=== PATIENT | male | born 1990 | race Caucasian/White ===

== ENCOUNTER 2021-03-26 14:23 | Emergency (ER) | payer OTHER, SELFPAY ==
[2021-03-26 14:31] VITALS: BP 149/99; PULSE 79; RESP 14; TEMP 36; O2SAT 97; BMI 29.2
--- NOTE | 2021-03-26 14:37 | DI.RAD.S_ITS ---
PROCEDURE: XR ELBOW RT MIN 3V INDICATIONS: elbow injury TECHNIQUE: 3 views of the elbow were acquired. COMPARISON: None. FINDINGS: Bones: There is a posterior displaced olecranon fracture. Otherwise, there is no dislocation at the elbow joint. Soft tissues: Elbow joint effusion is present. No suspicious soft tissue calcifications. IMPRESSION: Elbow effusion with posterior displaced olecranon fracture. Dictated by: Melanie Osborne M.D. on 03/26/2021 at 15:13 Approved by: Melanie Osborne M.D. on 03/26/2021 at 15:14
--- NOTE | 2021-03-26 16:19 | ED_ITS ---
HPI - Extremity Injury (Upper) <DEANA Contreras - Last Filed: 03/26/21 18:20> General Chief Complaint: Extremity Injury, Upper Stated Complaint: possible broken elbow right Time Seen by Provider: 03/26/21 16:18 Source: patient Mode of arrival: Ambulatory History of Present Illness HPI narrative: 30-year-old male presents to the emergency department after he injured his right elbow while at work. He states he tripped on something and fell from standing directly onto his right elbow feeling immediate pain and swelling. Patient denies sensation changes distal to the injury, his right elbow is markedly s wollen, denies taking any medication before this. States this happened just prior to arrival. Patient states he has an allergy to oxycodone with a rash, he denies any other medical problems. There is no open wound, patient is right handed, he is able to move his arm and has full range of motion of his hand and fingers. Related Data Previous Rx's Medication Instructions Recorded hydrocodone 5 mg-acetaminophen 325 1 tab PO Q8H PRN #14 tab 03/26/21 mg tablet methocarbamol 500 mg tablet 500 mg PO TID #20 tab 03/26/21 Allergies Allergy/AdvReac Type Severity Reaction Status Date / Time acetaminophen [From Percocet] Allergy Verified 03/26/21 14:34 oxycodone [From Percocet] Allergy Verified 03/26/21 14:34 Review of Systems <DEANA Contreras - Last Filed: 03/26/21 18:20> Review of Systems Narrative: General: denies fever, chills, malaise, sweats, fatigue Head/Neck: denies headache, neck pain, dizziness Eyes: denies visual changes, eye pain Cardio: denies chest pain, palpitations, edema Respiratory: denies dyspnea, cough, orthopnea GI: denies abdominal pain, nausea, vomiting, or diarrhea : denies dysuria, hematuria, urinary retention, frequency or incontinence MSK: Endorses left elbow pain, denies muscle weakness or distal sensation changes Skin: denies rash, itching, skin lesions or other Neuro: denies numbness, tingling Patient History <DEANA Contreras - Last Filed: 03/26/21 18:20> Social History Smoking Status: Unknown if ever smoked Smoking Status: Unknown if ever smoked alcohol intake frequency: holidays/special occasions only Substance Use Type: does not use Exam <DEANA Contreras - Last Filed: 03/26/21 18:20> Narrative Exam Narrative: Independently reviewed vitals signs and nursing notes. General: Awake, alert, well-nourished and developed, nontoxic, no cardiorespiratory distress Head/Neck: Atraumatic, neck full range of motion, trachea midline, no JVD or lymphadenopathy. Supple, nontender, no meningeal signs. Eyes: Pupils equal round and reactive, EOMI, conjunctiva normal, no scleral icterus or injections Nose: nares patent, no rhinorrhea, without purulent drainage or septal hematoma. Mouth/Throat: uvula midline, moist mucus membranes, posterior pharynx normal, no oral lesions, airway patent Cardio: Regular rate and rhythm, no peripheral edema Respiratory: respirations unlabored without wheezing, stridor, or rales. No retractions. GI: Abdomen soft, nontender, nondistended, no hepato-spenomegaly, no flank tenderness MSK: Moves all extremities, neurovascularly intact, right elbow with a large amount of swelling over the olecranon on, no open wound, patient endorses numbness and tingling in his fingers although range of motion is fully intact in his hand and wrist, patient denies any forearm pain, wrist pain, or humeral pain. Skin: Normal capillary refill, no rash Neuro: Normal speech and cognition, normal gait, A&O x3 Initial Vital Signs Initial Vital Signs: Vital Signs Temperature 96.8 F L 03/26/21 14:31 Pulse Rate 79 03/26/21 14:31 Respiratory Rate 14 03/26/21 14:31 Blood Pressure 149/99 H 03/26/21 14:31 Pulse Oximetry 97 03/26/21 14:31 <Petey Cao DO - Last Filed: 03/26/21 18:45> Initial Vital Signs Initial Vital Signs: Vital Signs Temperature 96.8 F L 03/26/21 14:31 Pulse Rate 79 03/26/21 14:31 Respiratory Rate 14 03/26/21 14:31 Blood Pressure 149/99 H 03/26/21 14:31 Pulse Oximetry 97 01/26/22 14:31 Procedures <DEANA Contreras - Last Filed: 03/26/21 18:20> Orthopedic Splinting/Casting Injury #1: Side: right Upper Extremity Injury Location: elbow Upper Extremity Immobilizer: sling/shoulder immobilizer and posterior splint Post splinting neuro exam: intact and no change Post splinting vascular exam: intact Placed by: Provider Course <DEANA Contreras - Last Filed: 03/26/21 18:20> Orders Ordered: ED Orders 03/26/21 14:37 XR elbow RT min 3V Stat Discontinued Medications Hydrocodone Bitart/Acetaminophen (Hydrocodone/Acet 5/325 Tablet) 1 tab PO NOW ONE Stop: 03/26/21 16:43 Last Admin: 03/26/21 16:47 Dose: 1 tab Documented by: ANA M Hydrocodone Bitart/Acetaminophen (Hydrocodone/Acet 5/325 Prepack) 1 bottle MISC SEEINSTR ONE Stop: 03/26/21 17:50 Last Admin: 03/26/21 18:11 Dose: 1 bottle Documented by: MIKEL Ketorolac Tromethamine (Ketorolac 30 Mg/Ml Vial) 15 mg IM NOW ONE Stop: 03/26/21 16:43 Last Admin: 03/26/21 16:48 Dose: 15 mg Documented by: ANA M Methocarbamol (Methocarbamol 500 Mg Tablet) 500 mg PO NOW ONE Stop: 03/26/21 17:50 Last Admin: 03/26/21 18:12 Dose: 500 mg Documented by: MIKEL Consultations Consultation #1: consult w/orthopedics regarding pt's posteriorly displaced olecranon fracture, Dr. Patten recommends a posterior long-arm splint with pain control and following up in the clinic in 1-3 days Vital Signs Vital signs: Vital Signs - 8 hr 03/26/21 14:31 03/26/21 18:12 Temperature 96.8 F L Pulse Rate 79 79 Respiratory Rate 14 18 Blood Pressure 149/99 H 145/92 H Pulse Oximetry 97 99 <Petey Cao DO - Last Filed: 03/26/21 18:45> Orders Ordered: ED Orders 03/26/21 14:37 XR elbow RT min 3V Stat Discontinued Medications Hydrocodone Bitart/Acetaminophen (Hydrocodone/Acet 5/325 Tablet) 1 tab PO NOW ONE Stop: 03/26/21 16:43 Last Admin: 03/26/21 16:47 Dose: 1 tab Documented by: ANA M Hydrocodone Bitart/Acetaminophen (Hydrocodone/Acet 5/325 Prepack) 1 bottle MISC SEEINSTR ONE Stop: 03/26/21 17:50 Last Admin: 03/26/21 18:11 Dose: 1 bottle Documented by: MIKEL Ketorolac Tromethamine (Ketorolac 30 Mg/Ml Vial) 15 mg IM NOW ONE Stop: 03/26/21 16:43 Last Admin: 03/26/21 16:48 Dose: 15 mg Documented by: ANA M Methocarbamol (Methocarbamol 500 Mg Tablet) 500 mg PO NOW ONE Stop: 03/26/21 17:50 Last Admin: 03/26/21 18:12 Dose: 500 mg Documented by: MIKEL Vital Signs Vital signs: Vital Signs - 8 hr 03/26/21 14:31 03/26/21 18:12 Temperature 96.8 F L Pulse Rate 79 79 Respiratory Rate 14 18 Blood Pressure 149/99 H 145/92 H Pulse Oximetry 97 99 MDM - Extremity Injury (Upper) <Preethi So [facility] - Last Filed: 03/26/21 18:20> Imaging Data Extremity x-ray #1: Radiologist's Impression: PROCEDURE:? XR ELBOW RT MIN 3V ? INDICATIONS:? elbow injury ? TECHNIQUE:? 3 views of the elbow were acquired.? ? COMPARISON:? None. ? FINDINGS:? ? Bones:? There is a posterior displaced olecranon fracture.? Otherwise, there is no dislocation at the elbow joint. ? Soft tissues:? Elbow joint effusion is present.? No suspicious soft tissue calcifications.? ? ? IMPRESSION:? Elbow effusion with posterior displaced olecranon fracture. ? ? Dictated by: Melanie Osborne M.D. on 03/26/2021 at 15:13 ? ? Approved by: Melanie Osborne M.D. on 03/26/2021 at 15:14 ? MDM Narrative Medical decision making narrative: This is a 30-year-old male who was at work today when he fell from standing after tripping on something and fell directly onto his right elbow. Patient is right handed, with a closed, posteriorly displaced olecranon fracture. Consult with Dr. Patten from Orthopedics recommends long-arm posterior splint, pain control and following up in the clinic in 1-3 days. This is a surgical injury and patient understands this and will follow-up in the clinic accordingly. Patient was placed in a long-arm splint and sling. He was given Toradol, and hydrocodone with good pain control. His tetanus is up-to-date and he does not have any wound. Patient's cap refill was less than 2 seconds in his right fingertips, range of motion fully intact in his hand wrist and shoulder, pain with movement in his right elbow as [id number]. Patient is appropriate and amenable to discharge home. Vital signs are stable on repeat examination is unremarkable. Patient has been informed of results. Patient has been given strict return to ER precautions for any new or worsening symptoms. Patient understands to follow up closely with outpatient providers as instructed. Patient understands plan and agrees to discharge home. All questions and concerns answered at this time. Discharge Plan Departure Patient Disposition: Home Clinical Impression: Work related injury Closed olecranon fracture Qualifiers: Encounter type: initial encounter Laterality: right Qualified Code(s): S52.021A - Displaced fracture of olecranon process without intraarticular extension of right ulna, initial encounter for closed fracture Instructions: DI for Elbow Fracture Activity Restrictions/Additional Instructions: *You have been diagnosed with a closed, posteriorly displaced fracture of the olecranon in your right elbow. Please ice this as best as you are able, sleeping upright in a chair with pillows may be the best position of comfort. Have called in muscle relaxers and pain pills for you to use as needed. Please use ibuprofen every 6 hours with food. Stay hydrated, drink plenty of water. [id number]. Please follow-up with Dr. Patten from Orthopedics in the next few days, call their office tomorrow and set up an appointment, I believe he sees patients at the [facility] office. *What to do: *Please continue to take your regular medications as directed. [x ] New medication prescriptions sent to your pharmacy: [[facility] ] [ ] New medication written as a paper prescription [ ] No new medications given *Please follow up with your primary care provider in 2-3 days, call for an appointment. Let them know you were seen in the Emergency Department and that we ask that you be seen in follow up. We will electronically transmit a record of today's note if your PCP is in our system *If you do not have a primary care provider please contact the [facility] Resource line at [phone]. They will ask some questions about your medical history and help get you set up with a doctor in the community. *Return to Emergency Department if you should have any new, worsening or concerning symptoms, such as [fever greater than 101F, chills, worsening pain, persistent vomiting or other bothersome symptoms] Prescriptions: New hydrocodone-acetaminophen 5-325 mg tablet 1 tab PO Q8H PRN (Reason: pain) Qty: 14 0RF methocarbamol 500 mg tablet 500 mg PO TID Qty: 20 0RF Referrals: Julio Patten MD [Physician] - 3-5 days Stand Alone Forms: Work Release Note <Petey Cao, DO - Last Filed: 03/26/21 18:45> Cosign ED Attending Cosignature Attestation: Dr Cao Co-Sign Statement: I was available for consultation during this patient's emergency department visit. This chart is signed by myself for administrative purposes only. I did not have direct contact with this patient during this visit. They were seen independently by the APC.
[2021-03-26] MEDS: HYDROCODONE/ACET 5/325 TABLET 1 TAB PO (16:47)
[2021-03-26] MEDS: KETOROLAC 30 MG/ML VIAL 15 MG IM (16:48)
[2021-03-26] MEDS: HYDROCODONE/ACET 5/325 PREPACK 1 BOTTLE MISC (18:11)
[2021-03-26 18:12] VITALS: BP 145/92; PULSE 79; RESP 18; O2SAT 99
[2021-03-26] MEDS: methocarbamoL 500 MG TABLET PO (18:12)
--- NOTE | 2021-03-26 18:45 | PC.NURSE ---
Pt fx rt-elbow at work, fell out of his truck, states 4 ft fall. Deformity noted. Provider at bedside. Splinted.
== END 2021-03-26 18:47 | disposition home or self-care (01) ==
PROVIDERS: Emergency Provider Nurse Practitioner Critical Care Medicine
DX: S52.021A Displaced fracture of olecranon process without intraarticular extension of right ulna, initial encounter for closed fracture (principal); W01.10XA Fall on same level from slipping, tripping and stumbling with subsequent striking against unspecified object, initial encounter; Y99.0 Civilian activity done for income or pay
CPT/HCPCS: 73080; 96372; 99283; 99284; J1885